=== PATIENT | male | born 1970 | race Caucasian/White ===

== ENCOUNTER 2022-04-07 11:25 | Emergency (ER) | payer SELFPAY ==
[2022-04-07 11:26] VITALS: BP 126/81; PULSE 78; RESP 20; TEMP 36.8; O2SAT 100; BMI 28.0
--- NOTE | 2022-04-07 11:32 | PC.NURSE ---
ED MD AT BEDSIDE FOR EVALUATION
--- NOTE | 2022-04-07 11:41 | PC.NURSE ---
PT PLACED IN GOWN AND WARM BLANKET PROVIDED
--- NOTE | 2022-04-07 11:43 | PC.NURSE ---
ED MD AT BEDSIDE FOR I&D
--- NOTE | 2022-04-07 11:55 | HMH.EDGENADL ---
Discharge Plan Disposition Patient Disposition: Home, Self-Care Condition: Good Prescriptions Prescriptions: New sulfamethoxazole-trimethoprim [Bactrim DS] 800-160 mg tablet 1 tab PO BID 7 Days Qty: 14 0RF Clinical Impressions Clinical Impression: Abscess of skin or subcutaneous tissue Instructions Patient Instructions: DI for Skin Abscess Discharge ED Provider: Reese Villatoro General Adult HPI General Chief complaint: Skin/Abscess/Foreign Body Stated complaint: boil on RT side of buttocks Time Seen by Provider: 04/07/22 11:45 Mode of Arrival: Ambulatory Limitations: No Limitations Description of Symptoms (Recalled from ER Triage Doc. by RN): PT REPORTS BOIL TO RIGHT BUTTOCKS. STARTED YESTERDAY History of Present Illness HPI narrative: This is a 51-year-old male presented to the emergency department with some swelling in his gluteus region. The patient has some swelling in the left gluteal cleft. He has had this for the last few days. He went and saw his primary physician and they recommended warm compresses. Patient noticed some drainage yesterday from it. He states that his pain is intensified. He is unable to put pressure on it secondary to the pain. Denies any fevers or chills. No headache or change in vision. No focal weakness. No chest pain or shortness of breath. Abdominal pain or vomiting. Related Data Previous Rx's Medication Instructions Recorded sulfamethoxazole 800 1 tab PO BID 7 days #14 tabs 04/07/22 mg-trimethoprim 160 mg tablet (Bactrim DS) Allergies Allergy/AdvReac Type Severity Reaction Status Date / Time No Known Allergies Allergy Verified 04/07/22 11:40 [facility] Medical History Hyperlipidemia Hypertension Social History Smoking Status: Current every day smoker alcohol intake: current current occupational status: employed Travel in the last 8 weeks: None ROS Obtained: Yes All systems reviewed & no additional complaints except as documented Constitutional Constitutional: Denies chills, Denies fever(s) and Denies headache(s) ENT Ears, Nose, Mouth, and Throat: Denies headache(s) Cardiovascular Cardiovascular: Denies chest pain and Denies dyspnea Respiratory Respiratory: Denies dyspnea Gastrointestinal Gastrointestingal: Denies vomiting Musculoskeletal Musculoskeletal: Denies arthralgias Integumentary/Breasts Skin/Breast: Reports furuncle Neurologic Neurologic: Denies headache(s) Physical Exam General General appearance: alert and in no apparent distress Respiratory Respiratory exam: Present normal lung sounds bilaterally; Absent respiratory distress Cardiovascular Cardiovascular exam: Present regular rate and normal rhythm Abdominal Exam Abdominal exam: Present soft; Absent distention, tenderness, guarding or rebound Extremities Exam Extremities exam: Present normal inspection and full ROM Neurological Exam Neurological exam: Present oriented X3 and CN II-XII intact Expanded Skin Exam Body image: 1. Warm, erythematous fluctuant lesion approximately 3 cm x 3 cm. Tender to palpation. No crepitus. Does not involve the rectal cleft or perineum. Medical Decision Making Medical Records Medical records reviewed: Yes I reviewed the patient's medical records. Trino Inquiry Pt receiving controlled substance: Yes Trino was queried for this patient: No Reason not queried -: Trino system downtime Risks and benefits of using a controlled substance: were discussed with pt by me Vital Signs: 04/07/22 11:26 Temperature 98.2 F Temperature Source Oral Pulse Rate [Radial] 78 Respiratory Rate 20 Blood Pressure [Left Arm] 126/81 Blood Pressure Mean [Left Arm] 96 Blood Pressure Source [Left Arm] Automatic Cuff Blood Pressure Position [Left Arm] Sitting 02 Sat by Pulse Oximetry 100 Oxygen Delivery Method Room Air Orders (
[2022-04-07 12:18] VITALS: BP 130/82; PULSE 80; RESP 18; TEMP 36.8; O2SAT 100
== END 2022-04-07 12:20 | disposition home or self-care (01) ==
PROVIDERS: Emergency Provider Emergency Medicine
DX: L02.31 Cutaneous abscess of buttock (principal); Z72.0 Tobacco use
CPT/HCPCS: 10060; 99283

== ENCOUNTER 2022-09-27 12:46 | Emergency (ER) | payer SELFPAY ==
[2022-09-27 12:57] VITALS: BP 173/93; PULSE 77; RESP 18; TEMP 36.9; O2SAT 97; BMI 28.2
[2022-09-27 13:00] VITALS: PULSE 89; O2SAT 96
[2022-09-27 13:02] LABS: Coronavirus 19, PCR Not Detected (NotDetected); Influenza A, PCR Not Detected (NotDetected); Influenza B, PCR Not Detected (NotDetected)
[2022-09-27 13:30] VITALS: PULSE 89; O2SAT 94
--- NOTE | 2022-09-27 13:32 | XR_ITS ---
FINAL REPORT TECHNIQUE: Chest PA & Lateral CLINICAL HISTORY: cough, congestion, h/o pna FINDINGS: 2 views of the chest were performed. The heart size is normal. The mediastinum is within normal limits. There are chronic changes in both lungs. There is linear scarring in the lingula. There are no pleural effusions. There is no pneumothorax. The bony thorax appears intact. IMPRESSION: No acute cardiopulmonary process. Reviewed, Interpreted and Dictated by Logan Novak MD Transcribed by Sudarshan Shelley Authenticated and [facility]
--- NOTE | 2022-09-27 14:22 | PC.NURSE ---
DR PIERCE AT BEDSIDE
--- NOTE | 2022-09-27 14:39 | HMH.EDGENADL ---
Discharge Plan Disposition Patient Disposition: Home, Self-Care Condition: Good Chief Complaint: Upper Respiratory Infection Prescriptions Prescriptions: No Action sulfamethoxazole-trimethoprim [Bactrim DS] 800-160 mg tablet 1 tab PO BID 7 Days Qty: 14 0RF Referrals Follow up/Referrals: Provider,Referral, [Primary Care Provider] - See instructions Clinical Impressions Clinical Impression: Viral infection Stand Alone Forms Stand Alone Forms: Work/School Release Discharge ED Provider: Luis F Sevilla General Adult HPI General Chief complaint: Upper Respiratory Infection Stated complaint: chest congestion Time Seen by Provider: 09/27/22 13:40 Mode of Arrival: Ambulatory Source of Information: Patient and Spouse Limitations: No Limitations Description of Symptoms (Recalled from ER Triage Doc. by RN): Pt c/o 09/23 onset of sore throat followed by rhinorrhea, cough and congestion, denies SOA at this time History of Present Illness HPI narrative: 52yo M presents to the ER secondary to cough. Reports he developed rhinorrhea and sore throat. No symptoms have resolved. No fever. Now has a mildly productive cough. Continues to smoke daily. No known sick contact Related Data Previous Rx's Medication Instructions Recorded sulfamethoxazole 800 1 tab PO BID 7 days #14 tabs 04/07/22 mg-trimethoprim 160 mg tablet (Bactrim DS) Allergies Allergy/AdvReac Type Severity Reaction Status Date / Time No Known Allergies Allergy Verified 04/07/22 11:40 [facility] Disclaimer: The information contained in this section may have been updated after the patient was seen, as this information can be updated by other users. Medical History Hyperlipidemia Hypertension Social History Smoking Status: Current every day smoker alcohol intake: current current occupational status: employed Travel in the last 8 weeks: None ROS Obtained: Yes Systems reviewed as appropriate & no additional complaints except as documented Physical Exam General General appearance: alert and in no apparent distress Head Head exam: atraumatic Eye Eye exam: Present normal appearance Neck Neck exam: Present normal inspection Chest Chest inspection: Present normal inspection Respiratory Respiratory exam: Present normal lung sounds bilaterally; Absent respiratory distress, wheezes, stridor or accessory muscle use Cardiovascular Cardiovascular exam: Present regular rate and normal rhythm Neurological Exam Neurological exam: Present alert, oriented X3 and CN II-XII intact Psychiatric Psychiatric exam: Present normal affect Skin Skin exam: Present warm Medical Decision Making Medical Records Medical records reviewed: Yes I reviewed the patient's medical records. Trino Inquiry Pt receiving controlled substance: No Vital Signs: 09/27/22 12:57 09/27/22 13:00 09/27/22 13:30 Temperature 98.5 F Temperature Source Oral Pulse Rate 89 89 Pulse Rate [Right Radial] 77 Respiratory Rate 18 Blood Pressure [Right Arm] 173/93 H Blood Pressure Mean [Right Arm] 119 Blood Pressure Source [Right Arm] Automatic Cuff Blood Pressure Position [Right Arm] Sitting 02 Sat by Pulse Oximetry 97 96 94 L Oxygen Delivery Method Room Air Room Air Room Air Lab Data Lab results reviewed: Yes I reviewed the patient's lab results. Lab Results 09/27/22 12:55: SARS-CoV-2 (PCR) Not detected, Influenza A Untype (PCR) Not detected, Influenza Type B (PCR) Not detected Orders (Tests/Meds): ORDERS Category Date Time Status XR chest 2V Stat Exams 09/27/22 13:32 Taken Rapid PCR Covid and Flu A/B Stat Lab 09/27/22 12:55 Completed Radiology Data #1: Image(s): Chest Image Reviewed: Yes I reviewed the patient's radiology image Preliminary Findings: Normal/NAD Medical Decision Narrative: 52yo M
[2022-09-27 14:40] VITALS: BP 140/80; PULSE 75; RESP 16; TEMP 36.8; O2SAT 98
== END 2022-09-27 14:48 | disposition home or self-care (01) ==
PROVIDERS: Emergency Provider Family Medicine
DX: R05.9 Cough, unspecified (principal); R09.81 Nasal congestion; B34.9 Viral infection, unspecified
CPT/HCPCS: 71046; 99283; 99284; C9803; U0003; U0005

== ENCOUNTER 2022-10-06 05:32 | Emergency (ER) | payer SELFPAY ==
[2022-10-06 05:39] VITALS: BP 146/84; PULSE 90; O2SAT 99
[2022-10-06 05:42] VITALS: BP 146/84; PULSE 87; RESP 16; TEMP 36.9; O2SAT 99; BMI 38.3
--- NOTE | 2022-10-06 05:47 | XR_ITS ---
PROCEDURE INFORMATION: Exam: XR Chest Exam date and time: 10/06/2022 5:42 AM Age: 52 years old Clinical indication: Cough; Additional info: Productive cough TECHNIQUE: Imaging protocol: Radiologic exam of the chest. Views: 2 views. COMPARISON: CR XR CHEST 2V 09/27/2022 1:30 PM FINDINGS: Lungs: There is patchy airspace disease in the left lung base. Pleural spaces: No pleural effusion. No pneumothorax. Heart/Mediastinum: No cardiomegaly. Bones/joints: Unremarkable. IMPRESSION: 1. There is patchy airspace disease in the left lung base. Pneumonia may be present. 2. A followup PA and lateral radiograph is recommended after appropriate therapy to demonstrate for clearing.
[2022-10-06 05:53] LABS: Coronavirus 19, PCR Not Detected (NotDetected); Influenza A, PCR Not Detected (NotDetected); Influenza B, PCR Not Detected (NotDetected)
[2022-10-06 06:00] VITALS: BP 141/86; PULSE 80; O2SAT 97
[2022-10-06 06:30] VITALS: BP 132/85; PULSE 75; O2SAT 96
--- NOTE | 2022-10-06 06:55 | HMH.EDURI ---
Discharge Plan Disposition Patient Disposition: Home, Self-Care Prescriptions Prescriptions: New azithromycin [azithromycin] 250 mg tablet 250 mg PO DIRECTED Qty: 6 0RF Rx Instructions: Take two (2) tablets on day #1, then one (1) tablet day #2 thru #5 benzonatate 100 mg Capsule 100 mg PO Q8H Qty: 20 0RF prednisone [prednisone] 20 mg tablet 20 mg PO BID Qty: 10 0RF No Action lisinopril 10 mg tablet 10 mg PO DAILY Label Comments: TAKE 1 TABLET BY MOUTH ONCE DAILY Referrals Follow up/Referrals: Provider,Referral, MD [Primary Care Provider] - See instructions Clinical Impressions Clinical Impression: Bronchitis Stand Alone Forms Stand Alone Forms: Work/School Release Instructions Patient Instructions: DI for Acute Bronchitis Discharge ED Provider: Elinor (ED)Jarrod URI/Sore Throat HPI General Chief Complaint: Upper Respiratory Infection Stated Complaint: productive cough,runny nose Time Seen by Provider: 10/06/22 06:30 Mode of Arrival: Family Vehicle Source of Information: Patient and Medical Record Limitations: No Limitations Description of Symptoms (Recalled from ER Triage Doc. by RN): 52 yo male presents with cc of sinus congestion x14 days leading down into his chest. He states he was seen > 1 week ago for the same issues without any assigned prescriptions per the ED doctor. Patient is alert, oriented, vss. Afebrile. Report thick white mucous, denies n/v/d. Has tried a dose of benadryl and a couple doses of aleve and tylenol for the symptoms. History of Present Illness HPI Narrative: uri sx and congestion over the last week - does smoke and no relief with otc meds Complaint: cough, sore throat and nasal congestion Onset (ago): day(s) Duration: intermittent Severity: moderate Relieving factors: OTC cold medicine Able to tolerate fluids by mouth: Yes Treatments prior to arrival: cold medicine Related Data Home Medications Medication Instructions Recorded Confirmed lisinopril 10 mg tablet 10 mg PO DAILY Hypertension 10/06/22 10/06/22 Previous Rx's Medication Instructions Recorded azithromycin 250 mg tablet 250 mg PO DIRECTED #6 tabs 10/06/22 benzonatate 100 mg capsule 100 mg PO Q8H #20 caps 10/06/22 prednisone 20 mg tablet 20 mg PO BID #10 tabs 10/06/22 Allergies Allergy/AdvReac Type Severity Reaction Status Date / Time No Known Allergies Allergy Verified 04/07/22 11:40 [facility] Disclaimer: The information contained in this section may have been updated after the patient was seen, as this information can be updated by other users. Medical History Hyperlipidemia Hypertension Social History Smoking Status: Current every day smoker alcohol intake: current current occupational status: employed Travel in the last 8 weeks: None ROS Obtained: Yes All systems reviewed & no additional complaints except as documented Physical Exam General General appearance: alert Head Head exam: normocephalic Eye Eye exam: Present PERRL and EOMI ENT ENT exam: Present normal oropharynx, mucous membranes moist and TM's normal bilaterally Neck Neck exam: Present full ROM and trachea midline Respiratory Respiratory exam: Present other (bilat rhonchi ); Absent respiratory distress Cardiovascular Cardiovascular exam: Present regular rate Abdominal Exam Abdominal exam: Present soft Extremities Exam Extremities exam: Present full ROM Neurological Exam Neurological exam: Present alert, oriented X3 and CN II-XII intact; Absent motor sensory deficit Psychiatric Psychiatric exam: Present normal affect Skin Skin exam: Absent rash Medical Decision Making Medical Records Medical records reviewed: Yes I reviewed the patient's medical records. Trino Inquiry Pt receiving controlled substance: No Vital Signs: 10/06/22 05:42 10/06/22
[2022-10-06 07:02] VITALS: BP 144/70; PULSE 82; RESP 19; TEMP 36.8; O2SAT 99
== END 2022-10-06 07:06 | disposition home or self-care (01) ==
PROVIDERS: Emergency Provider Emergency Medicine
DX: J20.9 Acute bronchitis, unspecified (principal)
CPT/HCPCS: 71046; 99283; 99284; C9803; U0003; U0005

== ENCOUNTER 2023-04-05 08:01 | Emergency (ER) | payer SELFPAY ==
[2023-04-05 08:10] VITALS: BP 130/91; PULSE 76; RESP 19; TEMP 36.9; O2SAT 98; BMI 29.2
--- NOTE | 2023-04-05 08:21 | EXP.UTC ---
Discharge Plan Disposition Patient Disposition: Home, Self-Care Condition: Good Prescriptions Prescriptions: New azithromycin [Zithromax Z-Myles] 250 mg tablet See Rx Instructions .ROUTE .COMPLEX 5 Days Qty: 6 0RF Rx Instructions: For 250 mg dose pack: take 500 mg today (day 1), then 250 mg for 4 days (days 2-5) prednisone [prednisone] 20 mg tablet 20 mg PO BID 5 Days Qty: 10 0RF benzonatate 100 mg capsule 100 mg PO TID PRN (Reason: cough) Qty: 30 0RF No Action lisinopril 10 mg tablet 10 mg PO DAILY Patient Comments: TAKE 1 TABLET BY MOUTH ONCE DAILY atorvastatin 10 mg tablet 10 mg PO HS Patient Comments: TAKE 1 TABLET BY MOUTH ONCE DAILY Referrals Follow up/Referrals: Provider,Referral, MD [Primary Care Provider] - See instructions Activity Restrictions/Add. Instructions Additional Instructions/Restrictions: Start antibiotic today. Be sure to complete entire prescription even if feeling better Monitor temp. Tylenol every 4 hours as needed and / or ibuprofen every 6 hours as needed ( As long as your primary care physician has told you that it ok to take both. For fever/aches/pains ER if no less than 101 despite Tylenol or Motrin Humidifier/vaporizer or hot steamy shower *Tessalon Perles will not cause drowsiness but use at bedtime to help stop cough so that you may get some rest. *Start steroid today. Helps with inflammation therefore, cough and wheezing. Follow directions on the package. Reviewed side effects. Patient reports taking them before. Follow up IMMEDIATELY for new or worsening of symptoms OR no noticeable improvement over the next 48-72 hours. 911 immediately for any life threatening symptoms such as chest pain or difficulty breathing Clinical Impressions Clinical Impression: Bronchitis Sinusitis Qualifiers: Sinusitis location: unspecified location Chronicity: unspecified Qualified Code(s): J32.9 - Chronic sinusitis, unspecified Stand Alone Forms Stand Alone Forms: Work/School Release Instructions Patient Instructions: Sinusitis, Acute Bronchitis, DI for Sinusitis Discharge ED Provider: Vivienne Mott [facility] General Stated complaint: achey,headache,cough Mode of Arrival: Ambulatory Source of Information: Patient Limitations: No Limitations Time Seen by Provider: 04/05/23 08:21 Description of Symptoms (Recalled from Triage Doc. by RN): PATIENT C/O BODY ACHES, PRODUCTIVE COUGH, CONGESTION, AND HEADACHE X 1 WEEK HEENT Symptoms (Recalled from RN notes): No Resp Symptoms (Recalled from RN notes): Yes Skin Symptoms (Recalled from RN notes): No MS Symptoms (Recalled from RN notes): No Functional Status (Recalled from RN notes): WNL History of Present Illness Provider Complaint: Patient states that he is an everyday smoker States that for the last week he has been having sinus congestion and pressure, drainage in the back of throat, cough that is productive at times, headache and feeling achy States that work wanted him to get tested for COVID but he feels more like it is sinusitis or bronchitis Related Data Home Medications Medication Instructions Recorded Confirmed lisinopril 10 mg tablet 10 mg PO DAILY Hypertension 10/06/22 04/05/23 atorvastatin 10 mg tablet 10 mg PO HS Cholesterol 04/05/23 04/05/23 Previous Rx's Medication Instructions Recorded azithromycin 250 mg tablet See Rx Instructions PO .COMPLEX 5 04/05/23 (Zithromax Z-Myles) days #6 tabs benzonatate 100 mg capsule 100 mg PO TID PRN cough #30 caps 04/05/23 prednisone 20 mg tablet 20 mg PO BID 5 days #10 tabs 04/05/23 Allergies Allergy/AdvReac Type Severity Reaction Status Date / Time No Known Allergies Allergy Verified 04/07/22 11:40 Worker's Comp Is this a Worker's Comp case?: No [facility] Disclaimer: The information contained in this section may have been updated after the patient was seen, as this informatio
[2023-04-05 08:31] LABS: UTC Influenza A Antigen Negative (Negative)
[2023-04-05 08:32] LABS: UTC Influenza B Antigen Negative (Negative)
[2023-04-05 08:40] VITALS: BP 130/91; PULSE 76; RESP 19; TEMP 36.9; O2SAT 98
== END 2023-04-05 08:42 | disposition home or self-care (01) ==
PROVIDERS: Emergency Provider Nurse Practitioner
DX: U07.1 COVID-19 (principal); J20.9 Acute bronchitis, unspecified; J01.90 Acute sinusitis, unspecified; F17.210 Nicotine dependence, cigarettes, uncomplicated; E78.5 Hyperlipidemia, unspecified; I10 Essential (primary) hypertension
CPT/HCPCS: 87635; 87804; 99204; 99212; G0463

== ENCOUNTER → 2023-07-05 23:26 | Outpatient (CLI) | payer OTHER, SELFPAY ==
[2023-07-05 18:37] LABS: Basophils # 0.1 K/mm3 (0-0.2); Basophils % 0.5 % (0.1-2.0); Eosinophils # 0.2 K/mm3 (0.0-0.4); Eosinophils % 1.6 % (0.1-12.0); Hematocrit 51.7 % (42.0-52.0); Hemoglobin 17.5 g/dL (14.1-18.0); Lymphocytes # 2.4 K/mm3 (0.7-4.5); Mean Corpuscular HGB Conc 33.9 g/dL (31.8-35.4); Mean Corpuscular Hemoglobin 36.1 pg (27.0-31.2); Mean Corpuscular Volume 106.3 fl (80-94); Mean Platelet Volume 9.1 fl (7.4-10.4); Monocytes # 0.6 K/mm3 (0.1-1.0); Neutrophils % 64.8 % (37.0-80.0); Platelet Count 146 K/mm3 (142-424); Red Blood Count 4.86 M/mm3 (4.60-6.20); Red Cell Distribution Width 13.6 % (11.5-17.5); White Blood Count 9.2 K/mm3 (4.8-10.8)
[2023-07-05 19:04] LABS: Alanine Aminotransferase 29 U/L (12-78); Albumin Level 4.6 g/dl (3.5-5.0); Albumin/Globulin Ratio 1.5 (1.1-1.8); Alkaline Phosphatase 67 U/L (38-126); Anion Gap 12.8 mEq/L (5-15); Aspartate Amino Transferase 33 U/L (17-59); Bilirubin,Total 0.5 mg/dl (0.2-1.3); Blood Urea Nitrogen 17 mg/dl (9-20); Calcium 9.2 mg/dl (8.4-10.2); Carbon Dioxide 25 mmol/L (22.0-30.0); Chloride 100 mmol/L (98-107); Cholesterol 224 mg/dl (140-200); Estimated Glomerular Filt Rate 102 ml/min (>60); GFR (African American) 123 ML/MIN (>60); Glucose 62 mg/dl (74-100); HDL Cholesterol 45 mg/dl (40-60); Potassium 3.8 mmoL/L (3.5-5.1); Sodium 134 mmol/L (136-145); Total Protein,Serum 7.6 g/dl (6.3-8.2); Triglycerides 173 mg/dl (30-150); VLDL Cholesterol 35 mg/dL (0-40)
[2023-07-05 19:15] LABS: Direct LDL Cholesterol 143.86 mg/dL (100-129)
[2023-07-05 19:21] LABS: 25-OH Vitamin D, Total 24.8 ng/mL (30-100)
[2023-07-05 19:37] LABS: Prostate Specific Ag Screen 1.2 ng/ml (0.0-4.0); Thyroid Stimulating Hormone 2.47 uIU/mL (0.465-4.68)
[2023-07-05 20:00] LABS: Hemoglobin A1C 4.9 % (4.0-6.0)
== END ==
LOC: LAB.DROPOF 23:31
PROVIDERS: Visit Provider Family Medicine
DX: I10 Essential (primary) hypertension (principal); E55.9 Vitamin D deficiency, unspecified; Z68.29 Body mass index [BMI] 29.0-29.9, adult; Z72.0 Tobacco use
CPT/HCPCS: 80053; 80061; 82306; 83036; 84443; 85025; G0103

== ENCOUNTER 2023-07-21 08:09 | Emergency (ER) | payer OTHER, SELFPAY ==
[2023-07-21 08:25] VITALS: BP 156/87; PULSE 73; RESP 20; TEMP 36.8; O2SAT 97; BMI 30.4
--- NOTE | 2023-07-21 08:57 | ED_ITS ---
Discharge Plan Disposition Patient Disposition: Still a Patient Prescriptions Prescriptions: No Action lisinopril 10 mg tablet 10 mg PO DAILY Qty: 30 2RF atorvastatin [Lipitor] 40 mg tablet 40 mg PO DAILY Qty: 30 2RF Referrals Follow up/Referrals: Robert Pacheco MD [Staff Physician] - See instructions Provider,MD Paul [Primary Care Provider] - See instructions Activity Restrictions/Add. Instructions Additional Instructions/Restrictions: You have some mild fatty liver disease and thrombocytopenia likely have some early liver disease. No definitive evidence of cirrhosis. No evidence of cancer or any other definitive abnormality to be causing your symptoms. I recommend that you follow-up with Dr. Pacheco our surgeon for an outpatient EGD. Clinical Impressions Clinical Impression: Postprandial epigastric pain, Alcoholism, Thrombocytopenia, Fatty liver Stand Alone Forms Stand Alone Forms: Work/School Release Instructions Patient Instructions: DI for Acute Abdominal Pain Discharge ED Provider: Krista Kent [facility] [place] <Vivienne Mott APRN - Last Filed: 07/21/23 20:49> General Chief complaint: Abdominal Pain Stated complaint: upper adominal pain Mode of Arrival: Ambulatory Source of Information: Patient Limitations: No Limitations Time Seen by Provider: 07/21/23 08:57 Description of Symptoms (Recalled from Triage Doc. by RN): PATIENT C/O INTERMITTEN EPIGASTRIC PRESSURE THAT STARTED 2 YEARS AGO, AND YESTERDAY IT BECAME WORSE AND MORE CONSISTANT. HE STATES IT IS WORSE AFTER HE EATS. DENIES NAUSEA OR VOMITING HEENT Symptoms (Recalled from RN notes): No Resp Symptoms (Recalled from RN notes): No Skin Symptoms (Recalled from RN notes): No MS Symptoms (Recalled from RN notes): No Functional Status (Recalled from RN notes): WNL History of Present Illness Provider Complaint: Patient states that he has been having intermittent pain in his upper mid epigastric area on for about 2 years that at times would get worse after he eat and then go away but since yesterday he has had consistent pressure in his upper epigastric area/sternal area that has been very uncomfortable and not went away and was not initiated by eating it just started Denies N/V Related Data Previous Rx's Medication Instructions Recorded lisinopril 10 mg tablet 10 mg PO DAILY Hypertension #30 07/05/23 tabs atorvastatin 40 mg tablet (Lipitor) 40 mg PO DAILY #30 tabs 07/06/23 Allergies Allergy/AdvReac Type Severity Reaction Status Date / Time No Known Allergies Allergy Verified 07/05/23 15:22 Worker's Comp Is this a Worker's Comp case?: No PFSH <Vivienne Mott APRN - Last Filed: 07/21/23 20:49> [facility] Disclaimer: The information contained in this section may have been updated after the patient was seen, as this information can be updated by other users. Medical History (Updated 07/21/23 @ 11:34 by Krista Kent MD) Abscess of skin or subcutaneous tissue Bronchitis Hyperlipidemia Hypertension Sinusitis Viral infection Social History Smoking Status: Current every day smoker alcohol intake: current current occupational status: employed Travel in the last 8 weeks: None <Vivienne Mott APRN - Last Filed: 07/21/23 20:49> ROS Obtained: Yes All systems reviewed & no additional complaints except as documented and Yes Systems reviewed as appropriate & no additional complaints except as documented Constitutional Constitutional: Reports system reviewed and no additional complaints, except as documented, Reports as per HPI and Denies fever(s) ENT Ears, Nose, Mouth, and Throat: Reports system reviewed and no additional complaints, except as documented and Reports as per HPI Cardiovascular Cardiovascular: Reports system reviewed and no additional complaints, except as documented, Reports as per HPI and Denies chest pain Respiratory Respiratory: Reports system reviewed and no additional complaints, except as documented, Reports as per HPI and Denies shortness of breath Gastrointestinal Gastrointestingal: Reports system reviewed and no additional complaints, except as documented, as per HPI and abdominal pain (reports pressure like feeling in upper epigastric/sternal area) Physical Exam <Vivienne Mott APRN - Last Filed: 07/21/23 20:49> General General appearance: alert and in no apparent distress Chest Chest inspection: Present normal inspection and symmetric chest wall rise Respiratory Respiratory exam: Present normal lung sounds bilaterally; Absent respiratory distress or wheezes Cardiovascular Cardiovascular exam: Present regular rate, normal rhythm and normal heart sounds Abdominal Exam Abdominal exam: Present other Comment: has red area on his upper epigastric/sternal where patient has been rubbing reports Pressure like feeling since yesterday Neurological Exam Neurological exam: Present alert, oriented X3 and normal gait Medical Decision Making <Vivienne Mott APRN - Last Filed: 07/21/23 20:49> Trino Inquiry Pt receiving controlled substance: No Trino was queried for this patient: No Vital Signs: 07/21/23 08:25 Temperature 98.3 F Temperature Source Oral Pulse Rate [Left Brachial] 73 Respiratory Rate 20 Blood Pressure [Left Arm] 156/87 H Blood Pressure Mean [Left Arm] 110 Blood Pressure Source [Left Arm] Automatic Cuff Blood Pressure Position [Left Arm] Sitting 02 Sat by Pulse Oximetry 97 Oxygen Delivery Method Room Air Lab Data 07/21/23 09:39 07/21/23 09:39 Medical Decision Narrative: Patient complainiing with pressure like pain in his upper mid epigastric area and sternal area that has been consistent since yesterday with no relief States that pain is pressure and uncomfortable Discussed with patient and will transfer to the ED for further work up and evaluation and he agreed Patient moved to the ED for further work up <Krista Kent MD - Last Filed: 07/21/23 15:07> Medical Decision Narrative: Patient complainiing with pressure like pain in his upper mid epigastric area and sternal area that has been consistent since yesterday with no relief States that pain is pressure and uncomfortable Discussed with patient and will transfer to the ED for further work up and evaluation and he agreed Patient moved to the ED for further work up EKG performed which I personally interpreted shows a ventricular rate of 67 normal sinus rhythm no acute ischemic changes noted there is nonspecific T wave inversion in the inferior lead III but noncontiguous leads no ST segment elevations depressions etc. there are no conduction abnormalities this is nondiagnostic from emergency standpoint.
[2023-07-21 09:14] VITALS: BP 158/90; PULSE 70; RESP 18; TEMP 36.8; O2SAT 98; BMI 28.8
--- NOTE | 2023-07-21 09:21 | PC.NURSE ---
pt arrived to ed from [facility]
--- NOTE | 2023-07-21 09:24 | PC.NURSE ---
DR AMAYA AT BEDSIDE
--- NOTE | 2023-07-21 09:29 | CT_ITS ---
FINAL REPORT CLINICAL HISTORY: 1 year of epigastric post prandial pain worsening COMPARISON: None FINDINGS: CT OF THE ABDOMEN AND PELVIS WITH CONTRAST Axial CT images of the abdomen and pelvis were obtained after the administration of IV contrast. Coronal and sagittal reformatted images were also obtained and reviewed. This study was performed with techniques to keep radiation doses as low as reasonably achievable (ALARA). Individualized dose reduction techniques using automated exposure control or adjustment of mA and/or kV according to the patient's size were employed. Abdomen: The lung bases are clear. Mild aortic valvular calcification is present. There is mild fatty infiltration of the liver. Mild gallbladder wall thickening is noted without CT evidence of gallstones or biliary ductal dilatation. The spleen is unremarkable. No adrenal mass is present. The pancreas has an unremarkable appearance. The kidneys are normal, without evidence of mass or hydronephrosis. The aorta is normal in caliber. There is no free fluid or adenopathy. No mass or abnormal fluid collection is seen. Pelvis: The appendix is normal. The urinary bladder is remarkable for mild bladder wall thickening and mild left hydroureter without evidence of a stone. Small bilateral inguinal hernias are noted containing fat. No inflammatory process is seen. There is no evidence of mass or adenopathy. There is no evidence of bowel obstruction. IMPRESSION: Mild aortic valvular calcification. Mild fatty infiltration of the liver. There is also mild gallbladder wall thickening without CT evidence of stones or biliary ductal dilatation. Mild bladder wall thickening and mild left hydroureter without evidence of a discrete stone. Reviewed, Interpreted and Dictated by Robert Cabello III, MD Transcribed by Louann Hinds Authenticated and [facility]
--- NOTE | 2023-07-21 09:29 | XR_ITS ---
FINAL REPORT CLINICAL HISTORY: dyspnea smoker x 35 yrs COMPARISON: None FINDINGS: A single portable view of the chest was obtained. The heart size and pulmonary vascularity are within normal limits. The mediastinum is within normal limits. No acute pulmonary abnormality is identified. The bony thorax is intact. IMPRESSION: No active cardiopulmonary disease. Reviewed, Interpreted and Dictated by Robert Cabello III, MD Transcribed by Louann Hinds Authenticated and [facility]
[2023-07-21 09:30] VITALS: BP 164/96; PULSE 67; O2SAT 98
--- NOTE | 2023-07-21 09:31 | HMH.EDGENADL ---
Discharge Plan Disposition Patient Disposition: Still a Patient Prescriptions Prescriptions: No Action lisinopril 10 mg tablet 10 mg PO DAILY Qty: 30 2RF atorvastatin [Lipitor] 40 mg tablet 40 mg PO DAILY Qty: 30 2RF Referrals Follow up/Referrals: Robert Pacheco MD [Staff Physician] - See instructions Provider,MD Paul [Primary Care Provider] - See instructions Activity Restrictions/Add. Instructions Additional Instructions/Restrictions: You have some mild fatty liver disease and thrombocytopenia likely have some early liver disease. No definitive evidence of cirrhosis. No evidence of cancer or any other definitive abnormality to be causing your symptoms. I recommend that you follow-up with Dr. Pacheco our surgeon for an outpatient EGD. Clinical Impressions Clinical Impression: Postprandial epigastric pain, Alcoholism, Thrombocytopenia, Fatty liver Instructions Patient Instructions: DI for Acute Abdominal Pain Discharge ED Provider: Krista Kent General Adult HPI General Chief complaint: Abdominal Pain Stated complaint: upper adominal pain Time Seen by Provider: 07/21/23 08:57 Mode of Arrival: Ambulatory Source of Information: Patient Limitations: No Limitations Description of Symptoms (Recalled from ER Triage Doc. by RN): Patient reports he has been having intermittent pressure in epigastric area for 2 years. Reports it doesn't feel like heart burn just comes and goes between his stomach and sternum area. History of Present Illness HPI narrative: Patient is a 53-year-old male with epigastric discomfort sent from the urgent treatment clinic. States this has been postprandial nature for the last 2 years. He drinks 1 pint of vodka daily for an extended period time has never had any evaluation from a radiographic standpoint for his abnormalities today or any lab abnormalities was just told that he had a muscle strain in the past. Denies any significant weight loss fevers shortness of breath hematemesis melena etc. States that his pain is epigastric and feels like something is there that should not be there. Was at the [facility] and was sent to the emergency department for further evaluation. Related Data Previous Rx's Medication Instructions Recorded lisinopril 10 mg tablet 10 mg PO DAILY Hypertension #30 07/05/23 tabs atorvastatin 40 mg tablet (Lipitor) 40 mg PO DAILY #30 tabs 07/06/23 Allergies Allergy/AdvReac Type Severity Reaction Status Date / Time No Known Allergies Allergy Verified 07/05/23 15:22 [facility] Disclaimer: The information contained in this section may have been updated after the patient was seen, as this information can be updated by other users. Medical History (Updated 07/21/23 @ 11:34 by Krista Kent MD) Abscess of skin or subcutaneous tissue Bronchitis Hyperlipidemia Hypertension Sinusitis Viral infection Social History Smoking Status: Current every day smoker alcohol intake: current current occupational status: employed Travel in the last 8 weeks: None ROS Obtained: Yes All systems reviewed & no additional complaints except as documented Physical Exam General General appearance: alert and in no apparent distress Respiratory Respiratory exam: Present normal lung sounds bilaterally Cardiovascular Cardiovascular exam: Present regular rate Abdominal Exam Abdominal exam: Present soft and other (No evidence of any cirrhotic sequelae); Absent distention or tenderness Neurological Exam Neurological exam: Present oriented X3 Medical Decision Making Trino Inquiry Pt receiving controlled substance: No Vital Signs: 07/21/23 08:25 07/21/23 09:14 07/21/23 09:30 Temperature 98.3 F 98.2 F Temperature Source Oral Oral Pulse Rate 67 Pulse Rate [Left Brachial] 73 70 Respiratory Rate 20 18 Blood Pressure 164/96 H Blood Pressure [Left Arm] 156/87 H 158/90 H Blood Pressure Mean [Left Arm] 110 112 Blood Pressure Source [Left Arm] Automatic Cuff Automatic Cuff Blood Pressure Position [Left Arm] Sitting 02 Sat by Pulse Oximetry 97 98 98 Oxygen Delivery Method Room Air Room Air Room Air Lab Data Lab results reviewed: Yes I reviewed the patient's lab results. Lab Results 07/21/23 09:39: WBC 7.7, RBC 4.87, Hgb 17.4, Hct 51.4, MCV 105.6 H, MCH 35.7 H, MCHC 33.8, RDW 13.7, Plt Count 141 L, MPV 8.0, Neut % (Auto) 71.9, Lymph % (Auto) 19.3, [place] % (Auto) 6.6, Eos % (Auto) 1.3, Baso % (Auto) 0.8, Neut # (Auto) 5.5, Lymph # (Auto) 1.5, [place] # (Auto) 0.5, Eos # (Auto) 0.1, Baso # (Auto) 0.1, PT 11.5, INR 1.07, Sodium 134 L, Potassium 4.0, Chloride 101, Carbon Dioxide 28, Anion Gap 9.0, BUN 13, Creatinine 0.70, Estimated Creat Clear 178, Estimated GFR 118, Est GFR ( Amer) 143, Glucose 105 H, Calcium 8.4, Total Bilirubin 0.8, AST 47, ALT 39, Alkaline Phosphatase 56, Troponin I < 0.01, Total Protein 7.0, Albumin 4.0, Globulin 3.0, Albumin/Globulin Ratio 1.3, Lipase 113 07/21/23 10:24: Urine Color Yellow, Urine Appearance Clear, Urine pH 7.5, Ur Specific [place] 1.010, Urine Protein Negative, Urine Glucose (UA) Negative, Urine Ketones Negative, Urine Blood Negative, Urine Nitrate Negative, Urine Bilirubin Negative, Urine Urobilinogen 0.2, Ur Leukocyte Esterase Negative, Urine RBC None, Urine WBC None, Ur Squamous Epith Cells Occasional, Amorphous Sediment Trace, Urine Bacteria None 07/21/23 09:39 07/21/23 09:39 Orders (Tests/Meds): ED MEDICATIONS Discontinued Medications Generic Name Dose Route Start Last Admin Trade Name Freq PRN Reason Stop Dose Admin Belladonna Alkaloids 60 ml 07/21/23 09:29 07/21/23 09:42 Belladonna Alkaloids 60 Ml Ml PO 07/21/23 09:30 60 ml ONCE ONE Administration Lactated Ringer's 1,000 mls @ 999 mls/hr 07/21/23 09:30 07/21/23 09:43 Lactated Ringer's 1000 Ml Bag IV 07/21/23 10:30 999 mls/hr .Q1H1M NAVI Administration Iopamidol 75 ml 07/21/23 10:15 07/21/23 10:16 Iopamidol-370 (76%);100ml Bottle IV 07/21/23 10:16 75 ml ONCE ONE Administration Sodium Chloride 10 ml 07/21/23 10:15 07/21/23 10:16 Sodium Chloride 0.9% 10ml Syr (Rad Only) IV 07/21/23 10:16 10 ml ONCE ONE Administration ORDERS Category Date Time Status CT abdomen pelvis w con Stat Cat Scan 07/21/23 09:29 Completed CXR --portable [XR chest portable] Stat Exams 07/21/23 09:29 Completed CBC w/Auto Diff [Complete Blood Count Auto Diff] Stat Lab 07/21/23 09:39 Completed CMP [Comprehensive Metabolic Panel] Stat Lab 07/21/23 09:39 Completed Lipase Stat Lab 07/21/23 09:39 Completed PT INR [Prothrombin Time INR] Stat Lab 07/21/23 09:39 Completed Trop I [Troponin I] Stat Lab 07/21/23 09:39 Completed Troponin I Q3H Lab 07/21/23 12:30 Ordered Troponin I Q3H Lab 07/21/23 15:30 Ordered UA [Urinalysis and Microscopic] Stat Lab 07/21/23 10:24 Completed ECG initial Besson Routine Y 07/21/23 09:44 Completed Medical Decision Narrative: Patient with above history and physical differential includes chronic pancreatitis, hepatobiliary disease, hiatal hernia, malignancy etc. Will get a chest x-ray troponin EKG CT scan with IV contrast lipase etc. GI cocktail has been administered. If his workup is negative we will still recommend an outpatient endoscopy given his history also had a discussion with him regarding his alcohol abuse and alcoholism which he understood is excessive. Reassessment [address] scan performed which I first interpreted which shows no acute abnormality to explain patient's symptoms does have mildly contracted gallbladder and thickened wall but no right upper quadrant tenderness this is not consistent with acute cholecystitis. Radiologist noted on their read that there is some mild hydroureter which is not impressive there is no hematuria no history of kidney stone I do not suspect he had a passed stone. This is nonactionable. Patient did have some fatty liver and mild thrombocytopenia which is likely secondary to patient's chronic alcohol abuse I had a discussion with him and strongly advised that he stop drinking. No definitive evidence of cirrhosis at this point but probably has some early fibrosis. He has been advised to follow-up with our general surgeon for an outpatient EGD given his unexplained postprandial discomfort peptic ulcer disease is certainly on the differential at this point.. He was very reassured and discharged in stable condition. Lastly no evidence of any cardiopulmonary disease chest x-ray I personally interpreted which showed no acute abnormality. And troponin was undetectably low. Critical Care Critical Care Time Critical Care Time: No
[2023-07-21] MEDS: BELLADONNA ALKALOIDS 60 ML ML PO (09:42)
[2023-07-21] MEDS: LACTATED RINGERS 1000ML 1,000 ML 999 ML IV (09:43)
--- NOTE | 2023-07-21 09:44 | ECG_ITS ---
APPROVED REPORT Exam: Resting ECG HR:67 bpm ECG Measurements Heart Rate 67 AXES HI 155 P 42 QRSd 95 QRS 64 QT 377 T 24 QTc 393 Conclusion SINUS RHYTHM NORMAL ECG UNCONFIRMED REPORT Electronically signed by : Ronal Walker MD 07/21/2023 20:07:20
[2023-07-21 09:57] LABS: Basophils # 0.1 K/mm3 (0-0.2); Basophils % 0.8 % (0.1-2.0); Eosinophils # 0.1 K/mm3 (0.0-0.4); Eosinophils % 1.3 % (0.1-12.0); Hematocrit 51.4 % (42.0-52.0); Hemoglobin 17.4 g/dL (14.1-18.0); Lymphocytes # 1.5 K/mm3 (0.7-4.5); Lymphocytes % 19.3 % (10-50); Mean Corpuscular HGB Conc 33.8 g/dL (31.8-35.4); Mean Corpuscular Hemoglobin 35.7 pg (27.0-31.2); Mean Corpuscular Volume 105.6 fl (80-94); Monocytes # 0.5 K/mm3 (0.1-1.0); Monocytes % 6.6 % (1.7-9.3); Neutrophils # 5.5 K/mm3 (1.8-7.8); Neutrophils % 71.9 % (37.0-80.0); Platelet Count 141 K/mm3 (142-424); Red Blood Count 4.87 M/mm3 (4.60-6.20); Red Cell Distribution Width 13.7 % (11.5-17.5); White Blood Count 7.7 K/mm3 (4.8-10.8)
[2023-07-21 09:59] LABS: INR 1.07 (0.9-1.1); Prothrombin Time 11.5 seconds (10.1-12.5); Sodium 134 mmol/L (136-145)
[2023-07-21 10:00] LABS: Alanine Aminotransferase 39 U/L (12-78); Albumin/Globulin Ratio 1.3 (1.1-1.8); Alkaline Phosphatase 56 U/L (38-126); Aspartate Amino Transferase 47 U/L (17-59); Bilirubin,Total 0.8 mg/dl (0.2-1.3); Blood Urea Nitrogen 13 mg/dl (9-20); Calcium 8.4 mg/dl (8.4-10.2); Carbon Dioxide 28 mmol/L (22.0-30.0); Chloride 101 mmol/L (98-107); Creatinine Clearance Estimated 178 mL/min (50-200); Estimated Glomerular Filt Rate 118 ml/min (>60); GFR (African American) 143 ML/MIN (>60); Glucose 105 mg/dl (74-100); Lipase 113 U/L (23-300)
--- NOTE | 2023-07-21 10:05 | PC.NURSE ---
PT TO CT
--- NOTE | 2023-07-21 10:06 | PC.NURSE ---
pt being taken to CT
[2023-07-21 10:15] LABS: Troponin I < 0.01 ng/ml (0.00-0.034)
[2023-07-21] MEDS: IOPAMIDOL-370 (76%);100ML BOTTLE 75 ML IV (10:16)
[2023-07-21] MEDS: SODIUM CHLORIDE 0.9% 10ML SYR (RAD ONLY) 10 ML IV (10:16)
[2023-07-21 10:30] LABS: Microscopic, Urine URINE MICROSCOPIC (MICROSCOPIC)
[2023-07-21 10:37] LABS: Appearance,Urine CLEAR (Clear); Bilirubin,Urine Negative (Negative); Blood, Urine Negative (Negative); Color,Urine YELLOW (Yellow); Glucose,Urine (UA) Negative (Negative); Ketones,Urine Negative (Negative); Leukocyte Esterase,Urine Negative (Negative); Nitrate,Urine Negative (Negative); PH,Urine 7.5 (5.0-8.5); Protein,Urine Negative (Negative); Urobilinogen,Urine 0.2 EU/dl (0.2)
[2023-07-21 10:51] LABS: Amorphous Sediment,Urine Trace /lpf; Squamous Epithelial Cell,Urine Occasional #/hpf (0-5)
[2023-07-21 11:40] VITALS: BP 151/91; PULSE 70; RESP 18; TEMP 36.8; O2SAT 98
== END 2023-07-21 11:42 | disposition still patient (30) ==
LOC: UTC 09:05 → ER 09:13
PROVIDERS: Emergency Provider Student in an Organized Health Care Education/Training Program
DX: R10.13 Epigastric pain (principal); D69.6 Thrombocytopenia, unspecified; K76.0 Fatty (change of) liver, not elsewhere classified; F10.20 Alcohol dependence, uncomplicated; I10 Essential (primary) hypertension; E78.5 Hyperlipidemia, unspecified; F17.200 Nicotine dependence, unspecified, uncomplicated
CPT/HCPCS: 71045; 74177; 80053; 81001; 83690; 84484; 85025; 85610; 93005; 96360; 99285; Q9967

== ENCOUNTER 2024-08-01 08:38 | Emergency (ER) | payer SELFPAY ==
[2024-08-01 08:50] VITALS: BP 147/89; PULSE 82; RESP 16; TEMP 36.9; O2SAT 99; BMI 29.5
--- NOTE | 2024-08-01 09:04 | XR_ITS ---
FINAL REPORT CLINICAL HISTORY: injury, pain COMPARISON: None FINDINGS: Two views of the right humerus were obtained. There is no acute fracture or dislocation. The joint spaces are well preserved. There is no acute soft tissue abnormality. IMPRESSION: No acute abnormality identified. Reviewed, Interpreted and Dictated by Logan Novak MD Transcribed by Samantha Blue Authenticated and . [facility]
--- NOTE | 2024-08-01 09:04 | XR_ITS ---
FINAL REPORT CLINICAL HISTORY: injury, pain COMPARISON: None FINDINGS: RIGHT SHOULDER Three views demonstrate no acute fracture or dislocation. There are mild hypertrophic changes at the acromioclavicular joint. The glenohumeral joint is intact. The soft tissues are unremarkable. IMPRESSION: No acute process. Reviewed, Interpreted and Dictated by Logan Novak MD Transcribed by Samantha Blue Authenticated and . [facility]
--- NOTE | 2024-08-01 09:08 | PC.NURSE ---
PT TO XR
--- NOTE | 2024-08-01 09:12 | ED_ITS ---
Discharge Plan Disposition Patient Disposition: Home, Self-Care Condition: Good Prescriptions Prescriptions: New naproxen 500 mg tablet 500 mg PO BID Qty: 20 0RF methocarbamol 750 mg tablet 750 mg PO Q8H PRN (Reason: pain) Qty: 20 0RF No Action lisinopril 20 mg tablet 20 mg PO DAILY Qty: 90 3RF atorvastatin 40 mg tablet See Rx Instructions .ROUTE .COMPLEX Qty: 90 0RF Dose Instruction: Take 1 tablet by mouth once daily Rx Instructions: Take 1 tablet by mouth once daily Referrals Follow up/Referrals: Latoya Max APRN [Primary Care Provider] - See instructions Dereck Altamirano DO [Staff Physician] - See instructions Activity Restrictions/Add. Instructions Additional Instructions/Restrictions: You were evaluated in the emergency department today. Please follow-up closely with orthopedics. Call Dr. Altamirano's office to schedule an appointment. Take Tylenol every 4-6 hours at home as needed for pain in addition to the prescriptions that I provided to you. Rest, ice, and elevate your right arm. I recommend limiting weightbearing to no more than 15 pounds in this extremity until you are seen by orthopedics. Return to the emergency department for new or worsening symptoms. Clinical Impressions Clinical Impression: Acute pain of right shoulder Stand Alone Forms Stand Alone Forms: Work/School Release Instructions Patient Instructions: DI for Shoulder Tendinopathy, DI for Shoulder Pain Print Language Print Language: Ukrainian Discharge ED Provider: Park Ojeda General Adult HPI General Chief complaint: Extremity Injury, Upper Stated complaint: Right Arm Pain/Bruising Time Seen by Provider: 08/01/24 08:53 Mode of Arrival: Ambulatory Source of Information: Patient Limitations: No Limitations Description of Symptoms (Recalled from ER Triage Doc. by RN): pt states he injured his RUE about 2wks ago during heavy lifting. pt reports R shoulder/axilla pain that radiates proximal to his neck and distal to his hands. pt reports numbness/tingling in his hand. pt states a few days after the injury he developed a large bruise to the inner part of his RUE, the bruise appears healing and he states it is much smaller. pt reports the pain is a dull/ache and 3/10 at this time. History of Present Illness HPI narrative: This patient is a 54-year-old male who has a history of alcohol use, hypertension, and hyperlipidemia presenting to the emergency department with concern for right shoulder pain. Patient states that about 2 weeks ago, he was lifting something heavy at work when he felt a pop in his right shoulder. He states initially that is okay, but the pain has been worse and he has pain with attempted range of motion of his right shoulder, bruising that extends down his right arm, and difficulty sleeping secondary to the pain. He states is a dull ache and is currently 3 out of 10. No other concerns noted at this time. No neck pain, midline back pain, or other issues. Related Data Previous Rx's ?Medication ?Instructions ?Recorded lisinopril 20 mg tablet 20 mg PO DAILY #90 tabs 09/28/23 atorvastatin 40 mg tablet See Rx Instructions .Route 07/17/24 .COMPLEX #90 tabs methocarbamol 750 mg tablet 750 mg PO Q8H PRN pain #20 tabs 08/01/24 naproxen 500 mg tablet 500 mg PO BID #20 tabs 08/01/24 Allergies Allergy/AdvReac Type Severity Reaction Status Date / Time No Known Allergies Allergy Verified 08/01/24 09:03 [facility] Disclaimer: The information contained in this section may have been updated after the patient was seen, as this information can be updated by other users. Medical History Sinusitis Bronchitis Viral infection Abscess of skin or subcutaneous tissue Hyperlipidemia Hypertension Social History Smoking Status: Current every day smoker alcohol intake: current current occupational status: employed Travel in the last 8 weeks: None Other Medical History Have you received the Pneumonia Vaccine: No ROS Obtained: Yes All systems reviewed & no additional complaints except as documented Physical Exam General General appearance: alert and in no apparent distress Head Head exam: atraumatic and normocephalic Eye Eye exam: Present normal appearance, PERRL and EOMI ENT ENT exam: Present normal exam, normal oropharynx, mucous membranes moist and normal external ear exam Neck Neck exam: Present normal inspection, full ROM and trachea midline; Absent tenderness Chest Chest inspection: Present normal inspection and symmetric chest wall rise; Absent tenderness Respiratory Respiratory exam: Present normal lung sounds bilaterally; Absent respiratory distress, wheezes, stridor or accessory muscle use Cardiovascular Cardiovascular exam: Present regular rate and normal rhythm Abdominal Exam Abdominal exam: Present soft; Absent distention, tenderness or guarding Extremities Exam Extremities exam: Present tenderness and normal capillary refill; Absent full ROM (Limited range of motion of the right shoulder secondary to pain. Preserved elbow ROM) or edema Expanded Upper Extremity Exam Right: L/R Arms Bottom View: 2 1. bruise that is healing Vascular exam: Normal capillary refill Comment: Neurovascularly intact distally Back Exam Back exam: Present normal inspection and full ROM; Absent tenderness Neurological Exam Neurological exam: Present alert, oriented X3, CN II-XII intact and normal gait; Absent motor sensory deficit Psychiatric Psychiatric exam: Present normal affect and normal mood Skin Skin exam: Present warm and dry Medical Decision Making Medical Records Medical records reviewed: Yes I reviewed the patient's medical records. Screening: Per USPSTF and CDC recommendations, given the prevalence of disease in our region, it is our hospital?s policy to screen for HIV and viral Hepatitis for all patients aged 18 and over and those with ongoing risk factors. Trino Inquiry Pt receiving controlled substance: No Vital Signs: 08/01/24 08:50 08/01/24 10:13 Temperature 98.4 F 98.1 F Temperature Source Oral Pulse Rate 78 Pulse Rate [Left] 82 Respiratory Rate 16 16 Blood Pressure 139/85 Blood Pressure [Right Arm] 147/89 H Blood Pressure Mean [Right Arm] 108 Blood Pressure Source [Right Arm] Automatic Cuff Blood Pressure Position [Right Arm] Sitting 02 Sat by Pulse Oximetry 99 Oxygen Delivery Method Room Air Lab Data Lab results reviewed: Yes I reviewed the patient's lab results. Orders (Tests/Meds): ORDERS Category Date Time Status Humerus XR right [XR humerus RT] Stat Exams 08/01/24 09:04 Completed Shoulder XR right miminum 2 views [XR shoulder RT min Exams 08/01/24 09:04 Completed 2V] Stat Medical Decision Narrative: In summary, this patient is a 54-year-old male presenting to the Emergency Department for evaluation of right shoulder pain after an injury 2 weeks ago. Differential diagnoses considered include but are not limited to rotator cuff injury, fracture, musculoskeletal strain/sprain, bicep tendon injury. Ruling out the most morbid conditions drove assessment. On exam, the patient is well-appearing. Patient has tenderness to palpation of the right shoulder joint with bruising extending over his right bicep. He has intact bicep flexion, intact range of motion of his right elbow and wrist. He does have limited range of motion of the right shoulder secondary to pain. No spinal tenderness. He is neurovascularly intact distally. I favor soft tissue injury such as bicep tendon injury versus rotator cuff injury. Workup included x-rays of the right shoulder and humerus. I independently interpreted x-ray prior to the radiologist read and noted no acute fracture. Please see their read for final interpretation. At this time, feel the patient is appropriate for discharge home with close follow-up with orthopedics for further evaluation and management. He is given prescription for Robaxin and naproxen as well as instructions for supportive management and strict return precautions. He was discharged after all questions were answered. Critical Care Critical Care Time Critical Care Time: No
[2024-08-01 10:13] VITALS: BP 139/85; PULSE 78; RESP 16; TEMP 36.7; O2SAT 100
== END 2024-08-01 10:10 | disposition home or self-care (01) ==
PROVIDERS: Emergency Provider Emergency Medicine; PCP Family Medicine
DX: M25.511 Pain in right shoulder (principal); M54.2 Cervicalgia; R20.2 Paresthesia of skin; M79.642 Pain in left hand; M79.641 Pain in right hand; S40.021A Contusion of right upper arm, initial encounter; X50.0XXA Overexertion from strenuous movement or load, initial encounter; Y93.89 Activity, other specified
CPT/HCPCS: 73030; 73060; 99283